=== PATIENT | male | born 1990 | race Caucasian/White ===

== ENCOUNTER 2020-03-09 06:46 | Inpatient (IN) | payer OTHER ==
--- NOTE | 2020-03-09 07:38 | ED ---
Psych HPI - General Chief Complaint: Psychiatric Symptoms Stated Complaint: petition Time Seen by Provider: 03/09/20 06:50 Source: patient Mode of arrival: ambulatory - History of Present Illness Initial Comments: Patient is a 29-year-old male past medical history of depression presents emergency Department with reported suicidal thoughts. Patient is accompanied by police who filled out a petition on the patient. They report the patient was making multiple suicidal statements to them therefore they transferred him for evaluation. Patient admits to making these comments. He has multiple superficial abrasions to his right forearm as well as his inner thighs. Reports a long-standing history of depression and has been previously on medication. States that he quit taking them because they're futile and he just wanted to . He has plans of jumping out in front of a car. Reports that if he is discharged from our facility today, that he will walk out in front of the first car he sees. Patient denies any attempts today. Denies homicidal ideations or hallucinations. Review of the patients chart reveals he has not been seen previously here. MD Complaint: suicidal ideation - Related Data Home Medications Medication Instructions Recorded Confirmed No Known Home Medications 03/09/20 03/09/20 Allergies Allergy/AdvReac Type Severity Reaction Status Date / Time divalproex sodium Allergy Swelling Verified 03/09/20 11:09 [From [facility]] Review of Systems ROS Statement: Those systems with pertinent positive or pertinent negative responses have been documented in the HPI. ROS Other: All systems not noted in ROS Statement are negative. Past Medical History Past Medical History: No Reported History Additional Past Medical History / Comment(s): heart murmor. kyphosis. History of Any Multi-Drug Resistant Organisms: None Reported Past Surgical History: Orthopedic Surgery Past Psychological History: ADD/ADHD, Anxiety, Bipolar, Depression Smoking Status: Current every day smoker Past Alcohol Use History: Heavy Past Drug Use History: Marijuana General Exam Limitations: no limitations General appearance: alert, in no apparent distress Head exam: Present: atraumatic, normocephalic, normal inspection Eye exam: Present: normal appearance, PERRL, EOMI. Absent: scleral icterus, conjunctival injection, periorbital swelling ENT exam: Present: normal exam, mucous membranes moist Neck exam: Present: normal inspection. Absent: tenderness, meningismus, lymphadenopathy Respiratory exam: Present: normal lung sounds bilaterally. Absent: respiratory distress, wheezes, rales, rhonchi, stridor Cardiovascular Exam: Present: regular rate, normal rhythm, normal heart sounds. Absent: systolic murmur, diastolic murmur, rubs, gallop, clicks GI/Abdominal exam: Present: soft, normal bowel sounds. Absent: distended, tenderness, guarding, rebound, rigid Extremities exam: Present: normal inspection, full ROM, normal capillary refill. Absent: tenderness, pedal edema, joint swelling, calf tenderness Back exam: Present: normal inspection Neurological exam: Present: alert, oriented X3, CN II-XII intact Psychiatric exam: Present: depressed, flat affect, suicidal ideation Skin exam: Present: warm, dry, intact, normal color. Absent: rash Course Vital Signs 03/09/20 06:48 Temperature 98.3 F Pulse Rate 90 Respiratory 18 Rate Blood Pressure 121/87 O2 Sat by Pulse 98 Oximetry Medical Decision Making - Medical Decision Making Upon arrival patient is placed in room 13. A thorough history and physical exam was performed. I am highly concerned for the patient's well being. Patient does provide a urine sample which is positive for marijuana. Patient is sober at this time. We are awaiting EPS evaluation. EPS evaluated patient and agree to admit the patient to - Lab Data Result diagrams: 03/10/20 08:51 03/11/20 09:22 Lab Results 03/09/20 Range/Units 07:34 Urine Opiates Screen Not Detected (NotDetected) Ur Oxycodone Screen Not Detected (NotDetected) Urine Methadone Screen Not Detected (NotDetected) Ur Propoxyphene Screen Not Detected (NotDetected) Ur Barbiturates Screen Not Detected (NotDetected) U Tricyclic Antidepress Not Detected (NotDetected) Ur Phencyclidine Scrn Not Detected (NotDetected) Ur Amphetamines Screen Not Detected (NotDetected) U Methamphetamines Scrn Not Detected (NotDetected) U Benzodiazepines Scrn Not Detected (NotDetected) Urine Cocaine Screen Not Detected (NotDetected) U Marijuana (THC) Screen Detected H (NotDetected) Disposition Clinical Impression: Depression, Suicidal ideation Disposition: ADMITTED IP TO THIS [facility] Condition: Serious Is patient prescribed a controlled substance at d/c from ED?: No Decision to Admit Reason: Admit from EC Decision Date: 03/09/20 Decision Time: 14:09
[2020-03-09 08:16] LABS: Amphetamine Screen,Urine Not Detected (NotDetected); Barbiturate Screen,Urine Not Detected (NotDetected); Benzodiazepines Screen,Urine Not Detected (NotDetected); Cocaine Screen,Urine Not Detected (NotDetected); Methadone Screen, Urine Not Detected (NotDetected); Opiate Screen,Urine Not Detected (NotDetected); Oxycodone Screen, Urine Not Detected (NotDetected); Phencyclidine Screen,Urine Not Detected (NotDetected); Tricyclic Antidepressant,Urine Not Detected (NotDetected); Urn Cannabinoid Scrn Detected (NotDetected)
[2020-03-09] MEDS ORDERED: MAGNESIUM HYDROXIDE 2,400 MG/10 ML CUP PO PRN (15:47)
[2020-03-09] MEDS ORDERED: ZIPRASIDONE 20 MG VIAL IM PRN (15:47)
[2020-03-09] MEDS ORDERED: MAG HYDROX/AL HYDROX/SIMETH 30 ML CUP PO PRN (15:47)
[2020-03-09] MEDS ORDERED: LORazepam 2 MG/ML INJ IM PRN (15:49)
[2020-03-09] MEDS: NICOTINE 14MG/24HR PATCH TRANSDERM SCH (21:20)
[2020-03-09] MEDS: LORazepam 1 MG TAB PO PRN (23:46)
[2020-03-10] MEDS: NICOTINE 14MG/24HR PATCH TRANSDERM SCH (08:49)
[2020-03-10 09:25] LABS: Basophils % (A) 1 %; Eosinophils # (A) 0.2 k/uL (0-0.7); Eosinophils % (A) 3 %; HCT 51.3 % (39.0-53.0); HGB 16.3 gm/dL (13.0-17.5); Lymphocytes # (A) 1.9 k/uL (1.0-4.8); Lymphocytes % (A) 26 %; MCH 30.9 pg (25.0-35.0); MCHC 31.7 g/dL (31.0-37.0); MCV 97.3 fL (80.0-100.0); Mean Platelet Volume 9.1; Monocytes # (A) 0.4 k/uL (0-1.0); Monocytes % (A) 6 %; Neutrophils # (A) 4.4 k/uL (1.3-7.7); Neutrophils % (A) 62 %; Platelet Count 204 k/uL (150-450); RBC 5.27 m/uL (4.30-5.90); RDW 13.1 % (11.5-15.5)
[2020-03-10 09:37] LABS: ALT 25 U/L (4-49); AST 36 U/L (17-59); African American GFR (CKD) >90 (>60 ml/min/1.73 sqM); Albumin 4.8 g/dL (3.5-5.0); Alkaline Phosphatase 88 U/L (38-126); Anion Gap 7 mmol/L; Blood Urea Nitrogen 14 mg/dL (9-20); Calcium 9.7 mg/dL (8.4-10.2); Carbon Dioxide 29 mmol/L (22-30); Chloride 105 mmol/L (98-107); Cholesterol 189 mg/dL (<200); Glucose 88 mg/dL (74-99); HDL Cholesterol 54 mg/dL (40-60); LDL Cholesterol,Calculated 118 mg/dL (0-99); Non-African American GFR(CKD) >90 (>60 ml/min/1.73 sqM); Potassium 5.5 mmol/L (3.5-5.1); Sodium 141 mmol/L (137-145); Total Bilirubin 1.1 mg/dL (0.2-1.3); Total Protein 7.5 g/dL (6.3-8.2); Triglycerides 86 mg/dL (<150)
--- NOTE | 2020-03-10 15:00 | HP ---
HISTORY AND PHYSICAL ADMITTING DATE: 03/09/2020. DATE OF EVALUATION: 03/10/2020 IDENTIFYING INFORMATION: The patient is 29 years, male who presented to the emergency room with suicidal thought with a plan to cut his wrist. The patient was brought by the police who filled out petition saying that the patient did make multiple suicidal statements saying that if he did not receive any medical help, he would cut himself or he will end his life HISTORY OF PRESENT ILLNESS: The patient stated that he has been suffering from mental illness since age 7. According to him, he did have different diagnoses between ADHD, bipolar, anxiety, and he said "Nothing did help me with all this medication I used to get." He stated that he was last seen by any outpatient psychiatrist was 8 years ago. 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 He reported that he has been having racing thought, poor sleep for a couple of days, then he crashed 2 days in a row . He also reports short t attention span, easily distracted, low frustration tolerance and poor impulse control He stated "my life is messed up because no one wants to help me. They are thinking that I am drug addict." The patient stated that he used to take Xanax and Adderall and it did help in the past. However, he could not find any psychiatrist to prescribe it. The patient stated that he has been estranged from all his family member because "everyone in the family is crazy or a drug addict." He denied having any auditory or visual hallucination, but he did admit that he has been having a hard time to trust people. He denied any active suicidal or homicidal ideation. However, he stated "I know I will kill myself in passive way, like stop eating or overdose on street drug." PAST PSYCHIATRIC HISTORY: As I mentioned, his first inpatient psych hospitalization when he was in fifth grade, he was admitted to [facility] for poor impulse control and diagnosed with bipolar disorder and ADHD. He is engaged in self-mutilation behavior started at age 16 by cutting himself. During early teens , he was admitted to [facility] once or twice, he could not remember. He was seen at [facility] for many years, but the last time he has been seen by any psychiatrist was 8 years ago. According to him, he stopped going because "I tried all the psychotropic medication, nothing helped." Regarding suicidal attempts, he stated "I cannot count, it is crazy to count. I have many suicidal attempts between overdosing on Xanax or cutting myself or trying to walk into traffic." He stated he tried lithium, Risperdal, Latuda, lamotrigine, Ritalin, trazodone, Xanax, Trileptal, Abilify, Zyprexa, Wellbutrin. According to him, the only medication did help when he was on Adderall twice a day and Latuda at bedtime, in addition to Xanax as needed. PRESENT MEDICAL HISTORY: His urine drug screen was negative. History of chronic back pain and history of heart murmur. ALLERGY: Allergic to DEPAKOTE. He has swallowing when he did get the DEPAKOTE. CHEMICAL DEPENDENCY HISTORY: There is extensive history of substance abuse. However, the patient minimizing this. 1. Alcohol. He stated that he has been drinking every other days between fifth to two fifths a day. The last time he did drink it was a couple of days ago, but he said "I am not alcoholic, I am just drinking when the other medication is not working.". 2. Marijuana. He stated that he has been smoking marijuana on daily basis because "now it is not illegal drug, it is recreational supplement.". 3. Patient stated that he had abused everything, methadone, [place], Xanax, Ritalin, methamphetamine, mushroom, LSD, cough syrup. He denied any current use of these illicit drug. He denied being in any residential treatment for substance abuse treatment. FAMILY PSYCHIATRIC HISTORY: 1. Mother diagnosed with bipolar and she is alcoholic. 2. Maternal aunt from alcohol. 3. He has one brother addicted to crack cocaine, one brother is alcoholic. 4. Paternal grandmother is psychotic. There is no suicide in the family. BRIEF SOCIAL HISTORY: Patient is the youngest of 3. He has 2 brothers, parents were . He was close to his father who in 2013 from stroke. Currently, he does not have any relationship with his family for the last year. The patient was once in 1918 and ended by divorce after one year. He stated that he had 2 children in 2012 from 2 different relationships, but he put them for adoption and it is a closed adoption. Currently, he is working as a cashier greeter in a liquor store and he is staying with a friend, but he said "I need to move out, my friend is drug dealer." The patient stated that he was on disability for bipolar disorder from his teens till 2017 , then after he got , disability was canceled and he said "I was forced to work. I am trying to get my disability back." LEGAL PROBLEMS: The patient denied any current legal problems. MENTAL STATUS EXAMINATION: General appearance: The patient appears to be his stated age, casually dressed, cooperative, fair hygiene and grooming. He was seated in his chair ,was getting irritable , especially when I am trying to redirect him, his speech was increased in productivity, pressured, tangential with loose association. He reported that his mood is depressed. His affect is constricted. He denied having any homicidal ideation, intent, or plan. He denied having any suicidal ideation inside the hospital. He denied visual hallucination and auditory hallucination. There is no evidence of any delusional thinking. However, he was very grandiose "I am genious" and there is underlying paranoia. He is alert, oriented x3. Memory is grossly intact. Insight and judgment are poor. STRENGTHS AND WEAKNESSES: Strengths: The patient has a job. Weakness: Poor judgment, impulsivity, no support system, poor compliance with medication, substance use IMPRESSION: 1. Bipolar disorder, currently mixed 2. Alcohol use disorder. 3. Cannabis use disorder. 4. History of polysubstance abuse during his teens. 5. Nicotine dependence. PLAN: Patient is admitted and he did sign voluntary admission to stabilize his mood and for his safety. As it seems that he did try most of his psychotropic except Seroquel , I will start Seroquel 100 mg for mood stabilization and will gradually titrate this to eliminate his symptom. Ativan and Geodon p.r.n. for agitation and aggression. The patient will participate in group therapy and activity therapy. The patient was informed about the risk and benefits and side effects of Seroquel and he did verbalize understanding. We will consult Internal Medicine for medical evaluation. laundromat worker onboard for discharge planning. MMODL / IJN: [id number] / ELIZABETH
[2020-03-10 17:33] LABS: Hemoglobin A1C 5.1 % (4.0-6.0)
[2020-03-10] MEDS ORDERED: QUEtiapine 100 MG TAB PO SCH (21:00)
[2020-03-10] MEDS ORDERED: KETOROLAC 15 MG/ML 1 ML VIAL IM STA (21:58)
--- NOTE | 2020-03-11 09:17 | P.MDCNMH ---
History of Present Illness H&P Date: 03/10/20 29-year-old male presents to [facility] for worsening depression and suicidal ideation. He has been admitted to mental health unit for further management and observation. [facility] physicians consulted for medical management of this patient. Patient denies any headache, lower extremity edema, nausea or vomiting, fever chills, cough, chest pain shortness of breath, palpitations, changes in urination or bowel habits. No change in appetite or weight. He denies any dizziness, numbness/weakness of extremities. He complains of back pain related to scoliosis. Review of Systems Pertinent positives and negatives as discussed in HPI, a complete review of systems was performed and all other systems are negative. Past Medical History Past Medical History: No Reported History Additional Past Medical History / Comment(s): heart murmor. kyphosis. History of Any Multi-Drug Resistant Organisms: None Reported Past Surgical History: Orthopedic Surgery Past Psychological History: ADD/ADHD, Anxiety, Bipolar, Depression Smoking Status: Current every day smoker, Heavy tobacco smoker Past Alcohol Use History: Heavy Past Drug Use History: Marijuana Medications and Allergies Home Medications Medication Instructions Recorded Confirmed Type No Known Home Medications 03/09/20 03/09/20 History Allergies Allergy/AdvReac Type Severity Reaction Status Date / Time divalproex sodium Allergy Swelling Verified 03/09/20 11:09 [From Depakote] Physical Exam Vitals: Vital Signs Temp Pulse Resp BP 03/10/20 14:30 98.7 F 03/10/20 00:04 98.1 F 62 16 131/83 General: [non toxic], [no distress], [appears at stated age] Derm: [warm], [dry] Head: [atraumatic], [normocephalic], [symmetric] Eyes: [EOMI], [no lid lag], [anicteric sclera] Mouth: [no lip lesion], [mucus membranes moist] Cardiovascular: [S1S2 reg], [no murmur], [positive DP pulse bilateral], Lungs: [CTA bilateral], [no rhonchi, no rales] , [no accessory muscle use] Abdominal: [soft], [ nontender to palpation], [no guarding], [no appreciable organomegaly] Ext: [no gross muscle atrophy], [no edema], [no contractures], scoliosis Neuro: [ CN II-XI grossly intact], [no focal neuro deficits] Psych: [Alert], [oriented], [appropriate affect] Cranial Nerve Examination - Cranial Nerves Cranial Nerve II- Optic: Intact Cranial Nerve III- Oculomotor: Intact Cranial Nerve IV- Trochlear: Intact Cranial Nerve V- Trigeminal: Intact Cranial Nerve - Abducens: Intact Cranial Nerve VII- Facial: Intact Cranial Nerve VIII- Auditory: Intact Cranial Nerve IX- Glossopharyngeal: Intact Cranial Nerve X- Vagus: Intact Cranial Nerve XI- Accessory: Intact Cranial Nerve XII- Hypoglossal: Intact Results CBC & Chem 7: 03/10/20 08:51 03/10/20 12:00 Labs: Abnormal Lab Results - Last 24 Hours (Table) 03/10/20 Range/Units 08:51 Potassium 5.5 H (3.5-5.1) mmol/L LDL Cholesterol, Calc 118 H (0-99) mg/dL Assessment and Plan Assessment: Scoliosis Hyperkalemia Dyslipidemia Marijuana use 1 time injection of Toradol offered to patient. Continue Tylenol. Potassium 5.5. Within normal limits on repeat. No intervention. Repeat BMP tomorrow morning. Advised dietary modifications at this time. Advised to quit. Ativan as needed for agitation. Thank you for this consult. Please call with any additional questions or concerns
[2020-03-11] MEDS: NICOTINE 14MG/24HR PATCH TRANSDERM SCH (09:25)
[2020-03-11 10:11] LABS: African American GFR (CKD) >90 (>60 ml/min/1.73 sqM); Anion Gap 6 mmol/L; Blood Urea Nitrogen 16 mg/dL (9-20); Calcium 9.4 mg/dL (8.4-10.2); Carbon Dioxide 30 mmol/L (22-30); Chloride 104 mmol/L (98-107); Glucose 87 mg/dL (74-99); Non-African American GFR(CKD) >90 (>60 ml/min/1.73 sqM); Potassium 4.3 mmol/L (3.5-5.1); Sodium 140 mmol/L (137-145)
--- NOTE | 2020-03-11 11:43 | P.PN ---
Progress Note - Text Progress Note Date: 03/11/20 I did review medical records ,I discussed case in team meeting ,I tried to interview patient as he was laying in bed however he refused to come to office saying that he can not move due to back pain Patient does not participate in any therapeutic activities I reviewed medical consult ,according to his note:((( Scoliosis Hyperkalemia Dyslipidemia Marijuana use 1 time injection of Toradol offered to patient. Continue Tylenol.))) Interim history: Patient was irritable ,hyperverbal ,focussing about his back pain saying "Injection that I had yesterday did not help ,I need something stronger "I offered him Motrin and Lidocaine but he replied with loud voice "I am telling you these do not help ,why I am laying here suffering and no one listening "patient reports poor sleep,racing thoughts ,low frustration tolerance,paranoia ,suspicious ,when I asked about suicidal ideation ,he replied "For sure I will kill myself if I am out of hospital ,I need strong pain medication ",he denies any hallucination but verbalize grandiose delusion and accusing staff including [facility] of not meeting his medical needs Mental status exam: He presented as a disheveled appearing male who is laying in bed .very irritable ,easily agitated ,loud voice ,angry demeanor,pressured speech ,stated mood "In pain ", focussing about pain ,denies any hallucination ,verbalized suicidal ideation as above,denies any homicidal ideation ,insight and judgment are impaired Clinical Problems: Bipolar ,mixed ,rule out with psychosis Alcohol and Cannabis use Cluster B personality disorder PLAN: continue hospitalization for safety and mood stabilization ,encourage participation in groups,Increase Seroquel 200 mg HS .will gradually titrate it to stabilize his mood,continue PRN for agitation or anxiety
[2020-03-11] MEDS: LORazepam 1 MG TAB PO PRN (16:27)
[2020-03-11] MEDS: traMADol 50 MG TAB PO PRN (17:54)
[2020-03-11] MEDS: ACETAMINOPHEN TAB 325 MG TAB PO PRN (17:54)
[2020-03-11] MEDS ORDERED: QUEtiapine 200 MG TAB PO SCH (21:00)
[2020-03-12] MEDS: LORazepam 1 MG TAB PO PRN ×2 (07:20→19:33)
[2020-03-12] MEDS: NICOTINE 14MG/24HR PATCH TRANSDERM SCH ×2 (10:20→13:14)
--- NOTE | 2020-03-12 10:46 | P.PN ---
Progress Note - Text Progress Note Date: 03/12/20 I did review medical records ,I discussed case in team meeting ,I tried to interview patient as he was laying in bed however he refused to come to office saying "How many people want to talk to me in five minutes ,same questions ,I am tired" Patient had 2 PRN Ativan yesterday and he had another Ativan at 7 AM today Medical doctor ordered Ultram TID for him Patient stated that he had night terrors and was up 2-3 times at night TODAY VITALS:Temp:98.1,Pulse:46,R:16,BP:95/65 Patient does not participate in any therapeutic activities Interim history: Patient was irritable ,hyperverbal ,focussing about his pain and anxiety "Ativan does not work enough ,I want stronger dose ".Patient claimed that he does not have appetite "Can you order THC patch ",I tried to discuss addiction potential and other TX options but patient got agitated saying "we finished talking ,we are not on the same page" Mental status exam: He presented as a disheveled appearing male who is laying in bed .very irritable ,easily agitated , angry demeanor,pressured speech ,stated mood "Anxious", ,denies any hallucination ,able to contract for safety in hospital ,denies any homicidal ideation ,insight and judgment are impaired Clinical Problems: Bipolar ,mixed ,rule out with psychosis Alcohol and Cannabis use Cluster B personality disorder PLAN: continue hospitalization for safety and mood stabilization ,encourage participation in groups,Increase Seroquel 300 mg HS .will gradually titrate it to stabilize his mood,continue PRN for agitation or anxiety,setting boundaries on his drug seeking behavior.SW on board for collateral information and post plan discharge
[2020-03-12] MEDS ORDERED: QUEtiapine 100 MG TAB PO SCH (21:00)
[2020-03-13] MEDS: NICOTINE 14MG/24HR PATCH TRANSDERM SCH (08:50)
[2020-03-13] MEDS: LORazepam 0.5 MG TAB PO PRN (10:32)
--- NOTE | 2020-03-13 11:18 | P.PN ---
Progress Note - Text Progress Note Date: 03/13/20 I did review medical records ,I discussed case in team meeting ,I tried to interview patient as he was laying in bed however he refused to come to office saying :"I am not morning person ,I do not have appetite and I did not eat breakfast" Patient had 2 PRN Ativan yesterday Interim history: Patient was irritable ,superficielly cooperative, oppositional ,defiant ,kept saying "I am not getting the help that I want ",evasive ,guarded , Patient stated that he had night terrors about not able to see his children "I d not want to talk about it" Patient did participate in one group Mental status exam: He presented as a disheveled appearing male who is laying in bed .very irritable ,easily agitated , angry demeanor,pressured speech ,stated mood "Anxious", ,denies any hallucination ,able to contract for safety in hospital ,denies any homicidal ideation ,insight and judgment are limited Clinical Problems: Bipolar ,mixed ,rule out with psychosis Alcohol and Cannabis use Cluster B personality disorder PLAN: continue hospitalization for safety and mood stabilization ,encourage participation in groups,Increase Seroquel 400 mg HS .will gradually titrate it to stabilize his mood,continue PRN for agitation or anxiety,setting boundaries on his drug seeking behavior. ,change PRN Ativan to 0.5 TID PRN for agitation ,Seroquel 25 mg TID PRN for anxiety SW on board for collateral information and post plan discharge Encourage participation in therapeutic groups
[2020-03-13] MEDS: ACETAMINOPHEN TAB 325 MG TAB PO PRN ×2 (14:43→20:26)
[2020-03-13] MEDS: QUEtiapine 25 MG TAB PO PRN (16:56)
[2020-03-13] MEDS: QUEtiapine 400 MG TAB PO SCH (20:26)
[2020-03-13] MEDS: traMADol 50 MG TAB PO PRN (20:26)
[2020-03-14] MEDS: NICOTINE 14MG/24HR PATCH TRANSDERM SCH (08:52)
[2020-03-14] MEDS: LORazepam 0.5 MG TAB PO PRN (08:52)
[2020-03-14] MEDS: QUEtiapine 25 MG TAB PO PRN ×2 (08:52→15:06)
--- NOTE | 2020-03-14 12:07 | PN ---
PROGRESS NOTE DATE OF SERVICE: 03/14/2020. CHIEF COMPLAINT: The patient was admitted on petition. He was depressed. There were significant family issues. He was homeless. He was also quite disorganized in thoughts. INTERVAL HISTORY: Patient has been doing fair. He had a quiet evening last night. He comes out in the day area. He has been attending groups. He will interact with others. He continues to be disorganized in his thinking. He can get intense at times. He has been cooperative with care. He slept fairly well last night. Today, he has been up. When I talked to him, he had a very intense manner. He kept asking about needing to get a test about "psychopathy." He was quite insistent on needing some kind of a testing evaluation and in face was so focused on that he did not seem to connect to anything I discussed with the patient. He did talk about chronic back pain, which he says is a major problem for him, which he related to a diagnosis of kyphosis. Not clear the patient showed much insight relating to substance use issues. He has been compliant with treatment and generally cooperative with care. He tolerates his psychotropic medications. MENTAL STATUS: Patient was quite restless. He seemed to be fairly distracted in his thinking. He had fair eye contact. At times, he would have a staring gaze. At other times, he would be looking in many different directions. He answered some questions appropriately, though much of the time he would make tangential comments and as noted above, was very focused on an issue about some psychological testing. His affect was intense. His mood was depressed. He was significantly distressed. He seemed to be showing psychotic symptoms in the extent of disorganized thinking he had. It was difficult to assess for issues of harm. He was oriented to circumstances and surroundings. ASSESSMENT: I will continue the current diagnosis and treatment plan. I will continue psychotropic medications the same. I had an extensive discussion with the patient regarding some physical activities he could do to help reduce his lower back pain, primarily a therapeutic walking program. I discussed withdrawal issues to a limited extent because the patient really was not able to follow the conversation very well. I encouraged the patient to continue with groups. We will focus on stabilization and discharge planning. MMLUCILLE / YANYN: [id number] /
[2020-03-14] MEDS: QUEtiapine 400 MG TAB PO SCH (20:15)
[2020-03-15] MEDS: QUEtiapine 25 MG TAB PO PRN (08:13)
[2020-03-15] MEDS: NICOTINE 14MG/24HR PATCH TRANSDERM SCH (08:13)
--- NOTE | 2020-03-15 13:02 | PN ---
PROGRESS NOTE DATE OF SERVICE: 03/15/2020. CHIEF COMPLAINT: The patient was admitted on petition. He was depressed that there were significant family issues. He was homeless. He was also quite disorganized in thoughts. INTERVAL HISTORY: The patient has been doing fair. He had a quiet evening last night. He has been attending groups. In groups, staff note that he tends to be quiet. He shows blunted mood. For the most part, he is appropriate in his interactions. He comes out in the day area. He wanders about. He will interact some with others, though he does tend to keep to himself. He will initiate some conversations, though mostly is focused on talking about things that others can do to help himself. He makes a comment that he wants to help others get better. He slept well last night. Today he has been up. He comes out in the day area. He continues to do about the same. He does seem to have some restlessness. When I talked to the patient he was focused on discharge planning. He was not clear about what direction he wants to take. He acknowledges that he needs to have some supportive housing situation. He has says he thinks he would do best if he was in a place where there was staff where he could have support to help him with his own stress issues. He noted his "6 month rule," where he may have friends or other connections but then by about 6 months those seem to go [facility] and he finds himself alone again. He says he needs support to move beyond that. He talks some about the possibility of work, though he also says he is trying to get his disability services organized as he apparently had been assessed as being disabled in the past. He is cooperative with care. He tolerates his psychotropic medications. MENTAL STATUS: Patient was somewhat restless. He gave fairly good eye contact. He answered questions appropriately. At times, he could become a little tangential. He was spontaneous and interactive. His affect was somewhat anxious. His mood dysphoric, though he did not appear to be significantly depressed. He did seem to be somewhat distressed. There was no outward evidence of thought disorder. He voiced no thoughts of harm. Cognition was clear. ASSESSMENT: I will continue the current diagnosis and treatment plan. The patient will continue Seroquel 25 mg twice a day, 400mg at bedtime as his primary psychotropic medication. The patient does note that he is feeling somewhat better with a little less anxiety. I discussed discharge planning issues and noted that we will need to begin some of that process on Monday when issues can be addressed at treatment team and coordinated with outpatient resources. We will focus on stabilization and discharge planning. ERIC / MICHAEL: [id number] / MTDD
[2020-03-15] MEDS ORDERED: QUEtiapine 25 MG TAB PO SCH ×2 (14:00→21:00)
[2020-03-15] MEDS: LORazepam 0.5 MG TAB PO PRN (14:33)
[2020-03-15] MEDS: ACETAMINOPHEN TAB 325 MG TAB PO PRN (14:34)
[2020-03-15] MEDS: QUEtiapine 25 MG TAB PO SCH (15:34)
[2020-03-15] MEDS: BENZOCAINE/MENTHOL LOZENG 1 EACH LOZENGE MUCOUS MEM PRN (17:41)
[2020-03-15] MEDS: QUEtiapine 400 MG TAB PO SCH (20:17)
[2020-03-16] MEDS: LORazepam 0.5 MG TAB PO PRN ×2 (03:14→19:51)
[2020-03-16] MEDS ORDERED: QUEtiapine 25 MG TAB PO SCH ×2 (09:00→15:10)
[2020-03-16] MEDS: NICOTINE 14MG/24HR PATCH TRANSDERM SCH (09:26)
[2020-03-16] MEDS: QUEtiapine 25 MG TAB PO SCH (09:26)
[2020-03-16] MEDS: BENZOCAINE/MENTHOL LOZENG 1 EACH LOZENGE MUCOUS MEM PRN ×2 (09:26→14:49)
[2020-03-16] MEDS: traMADol 50 MG TAB PO PRN ×2 (09:26→17:35)
[2020-03-16] MEDS: ACETAMINOPHEN TAB 325 MG TAB PO PRN ×3 (09:27→19:51)
--- NOTE | 2020-03-16 11:01 | P.PN ---
Progress Note - Text Progress Note Date: 03/16/20 I did review medical records ,I discussed case in team meeting ,I reviewed psychiatrist not on weekend ,patient was walking in [place] and did agree to follow me to office Patient had 0.5 PRN Ativan this morning Interim history: Patient was more cooperative ,not irritable or angry as before ,reports that he slept only 2-3 hours last night but he stated "It is beeter than before ,I was able to sleep all night",reports racing thoughts and "I can not figure out my goals as my mind is not slowing down",he stated that he was able to participate in some groups , Mental status exam: He presented as a casually dressed male who is less irritable ,cooperative with interview,stated mood "Nervous",affect is constricted ,denies any delusional thinking ,no idea of reference still grandiose saying "I was in therapy for 21 years I am qualified for PH D in psychology ", ,denies any hallucination ,able to contract for safety in hospital ,denies any homicidal ideation ,insight and judgment are limited Clinical Problems: Bipolar ,mixed ,rule out with psychosis Alcohol and Cannabis use Cluster B personality disorder PLAN: continue hospitalization for safety and mood stabilization ,encourage participation in groups,Increase Seroquel 400 mg HS and 50 mg BID.will gradually titrate it to stabilize his mood,continue PRN for agitation or anxiety,setting boundaries on his drug seeking behavior. ,change PRN Ativan to 0.5 TID PRN for agitation , SW on board for collateral information and post plan discharge Encourage participation in therapeutic groups
[2020-03-16 11:12] VITALS: BMI 24.1
[2020-03-16] MEDS: QUEtiapine 50 MG TAB PO SCH (14:47)
[2020-03-16] MEDS: QUEtiapine 400 MG TAB PO SCH (19:50)
[2020-03-17] MEDS: QUEtiapine 50 MG TAB PO SCH (08:15)
[2020-03-17] MEDS: NICOTINE 14MG/24HR PATCH TRANSDERM SCH (08:15)
[2020-03-17] MEDS: ACETAMINOPHEN TAB 325 MG TAB PO PRN (08:17)
[2020-03-17] MEDS: BENZOCAINE/MENTHOL LOZENG 1 EACH LOZENGE MUCOUS MEM PRN ×2 (08:17→20:06)
[2020-03-17] MEDS: LORazepam 0.5 MG TAB PO PRN (08:17)
--- NOTE | 2020-03-17 09:42 | P.PN ---
Progress Note - Text Progress Note Date: 03/17/20 I did review medical records ,I discussed case in team meeting , ,patient was walking in [place] and did agree to follow me to office Patient had 0.5 PRN Ativan last night and this morning ,had PRN Ultram for pain Interim history: Patient was more cooperative ,not irritable or angry as before ,reports that he slept 4-5 last night but he stated " has been participating in groups ,stated that he is not ready to be discharged as he does not have income or housing "I know I will kill my life if I have to be discharged now,I am scattered ,my brain is not working ,I need help to get housing and SSD", Mental status exam: He presented as a casually dressed male who is less irritable ,cooperative with interview,stated mood "Nervous",affect is constricted ,denies any delusional thinking ,no idea of reference ,labile at times ,intrusive but easy to redirect ,denies any hallucination ,able to contract for safety in hospital ,denies any homicidal ideation ,insight and judgment are limited Clinical Problems: Bipolar ,mixed ,rule out with psychosis Alcohol and Cannabis use Cluster B personality disorder PLAN: continue hospitalization for safety and mood stabilization ,encourage participation in groups,Increase Seroquel 400 mg HS and 100 BID.will gradually titrate it to stabilize his mood,continue PRN for agitation or anxiety,setting boundaries on his drug seeking behavior. , SW on board for collateral information and post discharge disposition Encourage participation in therapeutic groups
[2020-03-17] MEDS: QUEtiapine 100 MG TAB PO SCH (14:34)
[2020-03-17] MEDS: QUEtiapine 400 MG TAB PO SCH (20:05)
[2020-03-18] MEDS: QUEtiapine 100 MG TAB PO SCH (07:56)
[2020-03-18] MEDS: LORazepam 0.5 MG TAB PO PRN (07:56)
[2020-03-18] MEDS: traMADol 50 MG TAB PO PRN (07:56)
[2020-03-18] MEDS: NICOTINE 14MG/24HR PATCH TRANSDERM SCH (07:56)
[2020-03-18 08:10] VITALS: BP 108/65; PULSE 80; RESP 16; TEMP 97.8
--- NOTE | 2020-03-18 08:36 | DS ---
DISCHARGE SUMMARY DATE OF ADMISSION: 03/09/2020 DATE OF DISCHARGE: 03/18/2020 CONSULTATIONS: Jo Ríos M.D. was consulted for H&P and for medical management of the patient's chronic pain. REASON FOR HOSPITALIZATION AND HISTORY AND PHYSICAL EXAM AT THE TIME OF ADMISSION: The patient is a 29-year-old male who presented to the emergency room with suicidal thoughts with plan to cut his wrist. The patient was brought by the police who filed a petition saying that the patient did make multiple suicidal statements saying that if he did not receive any medical help, he would end his life. The patient stated that he has been suffering from mental illness since age 7 and he was diagnosed with ADHD, bipolar, anxiety, and personality disorder. The patient was seen at [facility] to 8 years ago. He stated that for the last 8 years, he had been not on any psychotropic medication and he did not see any therapist or any psychiatric. The patient stated that he has been struggling with alcohol use, especially he has been drinking 4 days a week. According to him, it is every other day between a fifth to two fifths a day, but at the time of admission, he denied that he is having problem with alcohol, saying that he has been drinking to calm down and resolve his anxiety. For complete H and P, please refer to my psych evaluated dictated on March 10. HOSPITAL COURSE: The patient was admitted to the hospital for 5 days. He was just lying in bed asking for pain medication, which has been prescribed by the medical doctor, as he did give him Ultram 3 times a day p.r.n. In addition, he was asking for Ativan every 8 hour saying that he has high anxiety. Initially he was very irritable, not cooperative, always complaining that he has been having racing thoughts and not able to sleep at night. As the patient did try most of the psychotropic medications except Seroquel, he did agree and he did sign the consent to start Seroquel and we gradually increased this to 100 mg in the morning, 100 mg at noon and 400 at bedtime. We did discuss his addiction and the patient inside of his addiction did get better and in the team treatment he was present and he did agree about our treatment plan to refer him to substance abuse treatment. The patient has been doing much better over the last 3 or 4 days. He comes out in the day area talking with other patients. In addition, he was attending every group. He still sometimes gets intense at times but very easy to redirect. Sometimes in the session he is just focusing about his chronic back pain and he stated that this is a major problem for him and related his pain is due to scoliosis. The patient was able to tolerate the Seroquel without having any side effects. MENTAL STATUS EXAMINATION: At the time of discharge, the patient is casually dressed, fair grooming, has fair eye contact. At times, he would have an intense look or gaze. His speech is coherent, goal- directed. At times he is easily distracted, but easy to redirect. His stated mood is "much better". Affect is constricted. He denied any current suicidal or homicidal ideation. He denied any hallucination. He denied any delusional thinking. He was oriented x3. His insight and judgment are improving. DISCHARGE DIAGNOSIS: 1. Bipolar disorder mixed with psychotic features. 2. Alcohol use disorder, severe. 3. Rule out cannabis use disorder. 4. Cluster B personality disorder. 5. History of chronic back pain. DISCHARGE PLAN: The patient was given a 2 week supply of Seroquel 100 mg in the morning, 100 mg at noon and 400 mg at bedtime. The patient was referred by [facility] to chemical dependency program. The patient will be transferred today to [facility] for alcohol use disorder. Prognosis is fair with complete sobriety and compliance with medication. MMODL / IJN: [id number] /
== END 2020-03-18 09:25 | disposition home or self-care (01) | DRG 885 ==
LOC: EC 06:46 → 3MHU 15:22
PROVIDERS: ADMIT Psychiatry & Neurology Psychiatry; ATTEND Psychiatry & Neurology Psychiatry
DX: F31.64 Bipolar disorder, current episode mixed, severe, with psychotic features (principal); R45.851 Suicidal ideations; F41.9 Anxiety disorder, unspecified; F51.4 Sleep terrors [night terrors]; E78.5 Hyperlipidemia, unspecified; E87.5 Hyperkalemia; F10.10 Alcohol abuse, uncomplicated; F12.10 Cannabis abuse, uncomplicated; F17.210 Nicotine dependence, cigarettes, uncomplicated; F60.89 Other specific personality disorders; F90.9 Attention-deficit hyperactivity disorder, unspecified type; G89.29 Other chronic pain; M41.9 Scoliosis, unspecified; S50.811A Abrasion of right forearm, initial encounter; S70.312A Abrasion, left thigh, initial encounter; S70.311A Abrasion, right thigh, initial encounter; Z59.0 Homelessness; Z63.8 Other specified problems related to primary support group; Z79.899 Other long term (current) drug therapy; Z81.3 Family history of other psychoactive substance abuse and dependence; Z82.3 Family history of stroke; Z91.83 Wandering in diseases classified elsewhere; Z88.8 Allergy status to other drugs, medicaments and biological substances
CPT/HCPCS: 80048; 80053; 80061; 80306; 82075; 83036; 84132; 84443; 85025; 99285